=== PATIENT | female | born 1960 | race Caucasian/White ===

== ENCOUNTER → 2019-12-04 09:51 | Outpatient (CLI) | payer BC, SELFPAY ==
--- NOTE | ~2019-12-04 | MR_ITS ---
EXAMINATION: MR ankle RT wo con DATE: 12/04/2019 10:39 INDICATION: Acute right ankle pain TECHNIQUE: Magnetic resonance imaging (MRI) of the right ankle was performed without intravenous cont rast. Sequences included sagittal, coronal, and axial proton-density weighted fast spin echo without and with fat saturation. COMPARISON: None. FINDINGS: Medial ankle ligaments: Deep and superficial deltoid ligaments as well as the spring ligament are normal. Lateral ankle ligaments: The anterior and posterior inferior tibiofibular ligaments are normal. The anterior talofibular, calc aneofibular and posterior talofibular ligaments are normal. Tendons: Achilles tendon is normal. Small amount of fluid in the peroneal tendon sheath consistent with mild t enosynovitis. Mild tendinopathy with longitudinal split tearing of both the peroneus longus and brevi s tendons centered at the level of the retromalleolar groove. There are postoperative changes along t he distal fibula including several screw tracks. There is some scarring along the peroneal retinaculu m. The tibialis anterior and extensor hallucis longus tendons are normal. There is a small amount of fluid along the posterior margin of the otherwise normal-appearing extensor digitorum longus tendon a t the level of the tibiotalar joint line which appears to communicate with a small amount of fluid in the anterior recess of the tibiotalar joint space. The tibialis posterior, flexor digitorum longus a nd flexor hallucis longus tendons are normal. Plantar fascia: Tiny plantar calcaneal spur at the calcaneal origin of the otherwise normal-appearing plantar aponeur osis. Bones/other: Bone alignment is normal. As previously noted there are postoperative changes along the distal fibula . Additional postoperative changes with a few additional foci of susceptibility artifact along medial margin of the medial malleolus. Finally there is a line of susceptibility artifact also likely relat ed to prior surgery along the dorsal lateral aspect of the hindfoot with mild underlying soft tissue edema. There appears to be some thickening and increased signal of the inferolateral aspect of the st em of the inferior extensor retinaculum. Correlate with surgical history. Marrow signal is otherwise normal. No acute fracture, reactive edema or pathologic marrow replacing process. Mild joint space na rrowing at the anterolateral aspect of the tibiotalar joint with tiny marginal osteophyte along the a nterolateral rim and minimal subarticular cystic change along the juxtaposed anteromedial margin of t he talar dome. Remaining joint spaces appear relatively preserved. Fluid: Physiologic amount fluid in the joint spaces. Mild soft tissue edema along the dorsal lateral aspect of the hindfoot. IMPRESSION: 1. Tendinopathy and longitudinal split tearing along the peroneus longus and brevis tendons centered at the retromalleolar groove where there is an irregular cortical margin potentially related to prior trauma given the presence of postoperative changes about the ankle including along the distal fibula , anteromedial margin of the medial malleolus and overlying the thickened likely scarred stem of the inferior extensor retinaculum. Correlate with surgical history. 2. Mild tibiotalar osteoarthritis. 3. Stabilizing ligaments of the ankle appear normal and there are no acute osseous abnormalities. Reviewed, dictated and finalized at location B. IMPRESSION: 1. Tendinopathy and longitudinal split tearing along the peroneus longus and br abiola tendons centered at the retromalleolar groove where there is an irregular cortical margin potentially related to prior trauma given the presence of posto perative changes about the ankle inclu
== END ==
PROVIDERS: PCP Internal Medicine
DX: M19.071 Primary osteoarthritis, right ankle and foot (principal)
CPT/HCPCS: 73721

== ENCOUNTER → 2020-10-01 14:40 | Outpatient (CLI) | payer BC, SELFPAY ==
--- NOTE | ~2020-10-01 | CT_ITS ---
EXAMINATION: CT foot RT wo con DATE: 10/01/2020 15:00 INDICATION: Pain at the right great toe sesamoids. TECHNIQUE: High resolution computed tomography (CT) of the right foot was performed without intraveno us contrast. Additional sagittal and coronal reconstructions were performed. Automated exposure contr ol and iterative reconstruction technique were employed. The dose-length product was 162.71 mGy-cm. COMPARISON: None FINDINGS: Proximally 30 degrees hallux valgus. Postoperative change of prior bunionectomy and likely realignmen t osteotomy at the distal aspect of the first metatarsal. Tiny cerclage wire along the medial base of the first metatarsal likely for fixation of an additional realignment osteotomy. There is medial sub luxation of the sesamoids plantar to the head of the first metatarsal. There is hypertrophy of the ti bial sesamoid. No fracture. Mild polyarticular osteoarthritis at the first metatarsophalangeal joint. Minimal osteoarthritis at multiple additional joints in the mid and forefoot. 3 lucent screw tracks are seen along the distal fibula consistent with prior internal fixation. There are couple small surg ical clips along the medial aspect of the medial malleolus and distal tibia. . Correlate with surgica l history. Mild stranding surrounding the peroneal tendon sheath which appears to contain a small julisa unt of fluid and/or synovitis surrounding the tendons which appear thickened and with mildly decrease d attenuation consistent with tendinopathy. IMPRESSION: 1. 30 degrees hallux valgus with mild lateral subluxation of the first metatarsal sesamoids and mild osteoarthritis at the first metatarsophalangeal joint. No fracture. 2. Peroneal tenosynovitis with likely tendinopathy of the peroneus longus and brevis tendons centered at and slightly distal to the retromalleolar groove. Reviewed, dictated and finalized at location A. IMPRESSION: 1. 30 degrees hallux valgus with mild lateral subluxation of the first metatars al sesamoids and mild osteoarthritis at the first metatarsophalangeal joint. No fracture. 2. Peroneal tenosynovitis with likely tendinopathy of the peroneus longus and b rush tendons centered at and slightly distal to the retromalleolar groove.
== END ==
PROVIDERS: PCP Internal Medicine; Visit Provider Specialist
DX: M79.671 Pain in right foot (principal); M20.11 Hallux valgus (acquired), right foot
CPT/HCPCS: 73700

== ENCOUNTER 2024-05-06 13:03 | Emergency (ER) | payer BC, SELFPAY ==
--- OUTSIDE RECORDS SUMMARY | 2024-05-06 13:11 | XMS_ITS | Encounter Summary ---
Author Organization [facility] Address Formerly [facility] [place] [address] [place] [address] Care Team Providers Care Boning Room Worker Name Role Phone Miller Cheney MD Primary Care Provider Kimberli Philippe MD Primary Care Provider [phone] Encounter Details Date Type Department Care Team (Late st Contact Info) Description 02/03/2017 [place] [address] , Generic ConversionMD Social History Tobacco Use Types Packs/Day Years Used Date Smoking Tobacco: Never Assessed Comments Unknown Sex and Gender Information Value Date Recorded Sex Assigned at Not on file Legal Sex Female 7:49 PM CDT Gender Identity Not on file Sexual Orientation Not on file documented as of this encounter Plan of Treatment Not on file documented as of this encounter Visit Diagnoses Not on filedocumented in this encounter Care Teams Boning Room Worker Relationship Specialty Start Date End Date Miller Cheney MD [address] [place] [address] PCP - General INTERNAL MEDICINE 04/13/20 03/15/22 [place] [address] [place] [id number] PCP - General FAMILY PRACTICE 03/16/22 documented as of this encounter
--- OUTSIDE RECORDS SUMMARY | 2024-05-06 13:11 | XMS_ITS | Continuity of Care Document ---
Author Organization [facility] Address [address] [place] [address] [address] [place] [address] Phone Care Team Providers Care Property Claims Adjuster Name Role Phone El Gallardo MD, FACS Unavailable Unavailab le Allergies, Adverse Reactions, Alerts Substance Reaction Status Criticality corn Active No Information silver sulfadiazine Active No Infor mation silver nitrate Active No Informatio n shellfish derived Active No Informa tion Medications Medication Instructions Dosage Effective Dates (start - stop) Status Comments Levothyroxine 112 mcg Cap - Active Singulair 10 mg Tab take 1 tablet (10MG) by ORAL route every day in the evening 10 MG - Active Spironolactone 25 mg Tab take 1 tablet (25MG) by ORAL route every day 25 MG - Active Procedures Procedure Date Corneal Topography Refractive Evaluation Advance Directives Directive Yes / No Effective Date File Name No Information Encounters Encounter Description Practice Location Reason(s) For Visit Diagnoses Date Provider Providers Copied on Encounter [facility], [facility] [address], [place], [place], [id number], [place] tel:[phone] SEC Odalis Lozano No Information Ramirez Gallegos. [facility] [address], [address], [place], [place], [id number], . tel:[phone] Referring Provider: El Newsome, [facility] [address], [place], [address] . tel:[phone] [facility], [address] [facility], [place], [place], [id number], [place] tel:[phone] SEC [facility] [place] blurry vision (chief complaint) HYPERMETROPIAINCI PIENT CATARACT 2 Paulina Gallegos. [address], [address], [place], [place], [address], [place]. tel:[phone] Referring Provider: El Newsome, [address], [place], [address] . tel:[phone] Family History Family Member Type Diagnosis Age At Onset Father Problem (finding) diabetes melli tus in first degree relative Payers Payer name Insurance type Covered republican ID Authoriza tion(s) No Information Social History Type Description Quantity Date Captured Comments Sex Female Smoking Status No Information Chief Complaint And Reason For Visit No Information Reason For Referral Reason For Referral No Information History Of Present Illness Encounter Date Complaint History Of Prese nt Illness No Information Functional Status Date Functional Assessmen t No Information Instructions Date Instruction Additional Infor gordon INCIPIENT CATARACT, OU -Small trace OU- vision not affected - will continue to monitor - Cataracts accounts for pt's complaints. No treatment currently recommended, patient will monitor vision changes and contact us with any decrease in vision. Very small trace OU. Related to INCIPIENT CATARACT - Sched measurements for crystal ens RLE Related to Hyperopia Hyperopia, OU -refra ctive eval. - doesn't like mono-doesn't want more than one pair of glasses- - Lasik not the best option, won't last forever. Pt wouldn't get rid of glasses all together. Risk factors in OD orbscan of cornea bulging after Lasik. RLE Discussed. Crystalens would be good option. Discussed exercises for crystalens. Discussed safety suture and residential dilation. Cost discussed. Discussed floaters will still be present after sx. If Crystalens schedule measurements at [facility]. Related to Hyperopia Assessments Type Assessment Date No Information Patient Care Teams Name Effective Dates (start - stop) Status Members No Information
--- OUTSIDE RECORDS SUMMARY | 2024-05-06 13:11 | XMS_ITS | Continuity of Care Document ---
Author Organization [facility] Address [address] [place] [address] Phone Care Team Providers Care Bird Cage Assembler Name Role Phone Manuel Gonzales MD Unavailable Unavailable Advance Directives Directive Yes / No Effective Date File Name No Information Encounters Encounter Description Practice Location Reason(s) For Visit Diagnoses Date Provider Providers Copied on Encounter [facility], [address] [place] [address], [id number], tel:[phone] [facility] Christian Jackson. [address] [place], [place], [id number], . tel:[phone] 8560 [facility] [facility], [address] [place] [address], [id number], tel:[phone] [facility] - [place] (Op) JOINT PAIN-L/LEG Sreekanth Adan. [address] [place], [place], [id number], . tel:[phone] 2632 [facility], [address] [place] [address], [id number], tel:[phone] [facility] [place] (Op) JOINT PAIN-SHLDER No Information Family History Family Member Type Diagnosis Age At Onset No Information Payers Payer name Insurance type Covered alliance party ID Authoriza tion(s) No Information Social History Type Description Quantity Date Captured Comments Sex Female Smoking Status No Information Chief Complaint And Reason For Visit No Information Reason For Referral Reason For Referral No Information History Of Present Illness Encounter Date Complaint History Of Prese nt Illness No Information Functional Status Date Functional Assessmen t No Information Instructions Date Instruction Additional Infor mation No Information Assessments Type Assessment Date No Information Patient Care Teams Name Effective Dates (start - stop) Status Members No Information
--- OUTSIDE RECORDS SUMMARY | 2024-05-06 13:11 | XMS_ITS | Patient Health Summary ---
Author Organization [facility] Address [address] [place] [address] Care Team Providers Care Director Of State Name Role Phone Unavailable Primary Care Provider Unavailabl e Note from [facility],non-owned Affiliates and Associated Physician Practices is amultiple site organization consisting of ambulatory clinics and hospital sitesin [place], [place], [place] and [place]. This disclosure is being madepursuant to the Care Everywhere program and may not contain all information available regarding this patient. Last updated 17.[facility] Social History Tobacco Use Types Packs/Day Years Used Date Smoking Tobacco: Never Assessed Sex and Gender Information Value Date Recorded Sex Assigned at Not on file Gender Identity Not on file Sexual Orientation Not on file Procedures * DERMATOPATHOLOGY(Performed 04/09/2024) Results * DERMATOPATHOLOGY (04/09/2024 11:09 AM RAILROAD INSPECTOR) Case Report Dermatopathology Report ? Case: [id number] ? Authorizing Provider: ??Isabel Coleman MD ?Collected: ? 04/09/2024 11:09 AM ? Ordering Location: ? [facility] - ??Received: ?04/09/2024 03:28 PM ? DermPath Lab ? Pathologist: ? Elaine Azevedo MD ? Specimen: ?Skin, left lower leg ? 9:44 AM [facility] DERMATOPATHOLOGY [facility]ORAT[facility] Final Diagnosis Specimen A. SKIN, left lower leg: POROKERATOSIS (Q82.8) (see microscopic description) 9:44 AM [facility] DERMATOPATHOLOGY [facility]OR[facility] Clinical History R/O BCC 9:44 AM [facility]ERMAT[facility] Gross Description Specimen A: Received is one formalin filled container labeled with the patient's name and designated left lower leg. The specimen consists of a shave biopsy measuring 5x4x1 mm. Jar 0. 9:44 AM [facility] DERMATOPATH[facility]Y [facility] Microscopic Description Specimen A. SKIN, left lower leg: There is a sparse to moderately dense lichenoid lymphohistiocytic infiltrate, a thinned epidermis, and cornoid lamella formation. Additional deeper sections were obtained and reviewed. 9:44 AM [facility] DERMATOPATH[facility]Y [facility] Disclaimer An external and internal positive and negative controls are appropriate for the histochemical, immunohistochemical and immunofluorescence stain(s) in this case (if any), except where stated explicitly. The performance characteristics of the stain(s) cited in this report were developed and its performance characteristic determined by the Dermatopathology Laboratory at [facility], directed by Dr. Rosemary Johnson. These tests need not be, and therefore are not, approved by the [place] Food and Drug Administration. The tests are used for clinical purposes. Billing Codes Specimen Charges Stain Charges 92439 1 5 9:44 AM RAILROAD INSPECTOR DERMATOPATHOLOGY LABORATORY Embedded Images 5 9:44 AM RAILROAD INSPECTOR DERMATOPATHOLOGY LABORATORY Pathology/Cytolo gy TISSUE SPECIMEN FROM SKIN / Unknown 04/09/2024 11:09 AM RAILROAD INSPECTOR 04/09/2024 3:28 PM RAILROAD INSPECTOR Isabel Coleman MD LAB - PATHOLOGY/CYTO LOGY ORDERABLES DERMATOPATHOLOGY LABORATORY [facility] - Department of Dermatology [facility] Specialized Medicine [address] [place] [address], [address] [phone]
--- OUTSIDE RECORDS SUMMARY | 2024-05-06 13:11 | XMS_ITS | Clinical Summary ---
Author Organization [facility] Address [address] [place] [address] Phone Care Team Providers Care Fire Equipment Repairer Inspector Name Role Phone Miller Cheney MD Primary Care Provider [phone] Allergies Active Allergy Reactions Criticality Noted Date Comments Betamethasone Swelling Low 04/14/2020 Ceftriaxone Swelling Medium 04/14/2020 [place] Oil Rash Low 04/18/2012 Fexofenadine Rash Low 04/18/2012 Hymenoptera Allergenic Extract Anaphylaxis High 08/2017 Levocetirizine Rash Low 04/14/2020 Levofloxacin Rash Low 04/14/2020 Montelukast Rash Low 04/18/2012 Red (Food Color) Swelling Low 11/05/2017 Shellfish Containing Products Anaphylaxis High 11/05 Sulfa (Sulfonamide Antibiotics) Rash Low 04/02 Yellow (Food Color) Swelling Low 11/05/2017 Yellow Dye Swelling Low 11/05/2017 Medications levothyroxine 150 mcg tablet Take 150 mcg by mouth daily historiography professor. Active Active Problems Problem Noted Date Diagnosed Date Silicone breast implant in situ 02/13/2023 Overview (02/13/2023): Textured implants Status post bilateral mastectomy 02/13/2023 Breast swelling 02/13/2023 Breast pain 02/13/2023 History of breast cancer 02/13/2023 Family History Medical History Relation Name Comments Prostate Cancer Maternal Grandfather Colon Cancer Maternal Grandmother Breast Cancer Mother Breast Cancer Paternal Aunt Prostate Cancer Paternal Grandfather Colon Cancer Paternal Grandmother Relation Name Status Comments Maternal Grandfather Maternal Grandmother Mother Paternal Aunt Alive Paternal Grandfather Paternal Grandmother Social History Tobacco Use Types Packs/Day Years Used Date Smoking Tobacco: Never Smokeless Tobacco: Never Alcohol Use Standard Drinks/Week Comments No 0 (1 standard drink = 0.6 oz pur e alcohol) Comments Unknown Sex and Gender Information Value Date Recorded Sex Assigned at Not on file Legal Sex Female 1:06 PM CDT Gender Identity Not on file Sexual Orientation Not on file Last Filed Vital Signs Vital Sign Reading Time Taken Comments Blood Pressure 180/89 02/13/2023 11:08 AM LAWN AND GARDEN TECHNICIAN Pulse 87 02/13/2023 11:08 AM LAWN AND GARDEN TECHNICIAN Temperature 36.2 ??C (97.1 ??F) 03/01/2018 12:[address] Respiratory Rate 18 03/01/2018 12:34 PM LAWN AND GARDEN TECHNICIAN Oxygen Saturation 99% 02/13/2023 11:08 AM LAWN AND GARDEN TECHNICIAN Inhaled Oxygen Concentration - - Weight 82.6 kg (182 lb) 02/13/2023 11:08 AM LAWN AND GARDEN TECHNICIAN Height 170.2 cm (5' 7 ) 02/13/2023 11:08 AM LAWN AND GARDEN TECHNICIAN Body Mass Index 28.51 02/13/2023 11:08 AM LAWN AND GARDEN TECHNICIAN Plan of Treatment Health Maintenance Due Date Last Done Comments DTAP/TDAP/TD VACCINES (1 - Tdap) 12/15/1978 CERVICAL CANCER SCREENING 12/15/1989 FIT-DNA Q 3 years 12/15/2004 FIT/FOBT Q 1 year 12/15/2004 Flex Sig/CT Colonography Q 5 years 12/15/2004 ZOSTER VACCINE (1 of 2) 12/15/2009 COLORECTAL SCREENING 03/01/2021 03/01/2018, 03/01/2018, 03/01/2018, Additional history exists Colorectal Cancer Screening 03/01/2021 INFLUENZA VACCINE (#1) 2023 BREAST CANCER SCREENING 02/14/2024 02/13/2023, 02/13 RSV VACCINE (60+ or ) (1 - 1-dose 75+ series) 12/15/2034 PNEUMOCOCCAL VACCINE 0-64 YEARS Aged Out No longer eligible based on patient's age to complete this topic Procedures Procedure Name Priority Date/Time Associated Diagnosis Comments COLONOSCOPY REPORT 03/01/2018 12 :20 PM LAWN AND GARDEN TECHNICIAN from Last 3 Months or Most Recently Relevant to Health Maintenance Results * COLONOSCOPY REPORT (03/01/2018 12:20 PM LAWN AND GARDEN TECHNICIAN) Narrative Procedure Note Gumaro Iniguez MD - 03/01/2018 12:19 PM CST [facility] Endoscopy Patient Name: Luana Carlos Procedure Date: 03/01/2018 Date of : 1960 Admit Type: Outpatient Attending MD: Gumaro Iniguez MD Procedure: Colonoscopy Indications: Screening for colorectal malignant neoplasm, Last colonoscopy: 2005 Providers: Gumaro Iniguez MD Referring MD: Miller Cheney MD Medicines: Monitored Anesthesia Care Complications: No immediate complications. Procedure: Informed consent was obtained for the procedure, including moderate sedation after risks were discussed. Based on the pre-procedure assessment, including review of the patient's medical history, medications, allergies, and review of systems, the patient was deemed to be an appropriate candidate for sedation. A timeout was performed. Continuous ECG monitoring, pulse oximetry, blood pressure monitoring, and direct observation were performed. The Colonoscope was introduced through the anus and advanced to the terminal ileum. The quality of the bowel preparation was excellent. Estimated Blood Loss: Estimated blood loss: none. Findings: Two flat polyps were found in the ascending colon. The polyps were 8 to 12 mm in size. These polyps were removed with a cold snare. Resection and retrieval were complete. A 7 mm polyp was found in the descending colon. The polyp was flat. The polyp was removed with a cold snare. Resection and retrieval were complete. External and internal hemorrhoids were found during retroflexion and during perianal exam. The hemorrhoids were mild. The terminal ileum appeared normal. Impression: - Two 8 to 12 mm polyps in the ascending colon, removed with a cold snare. Resected and retrieved. - One 7 mm polyp in the descending colon, removed with a cold snare. Resected and retrieved. - External and internal hemorrhoids. - The examined portion of the ileum was normal. Recommendation: - Await pathology results. - Repeat colonoscopy in 3 years for surveillance pending pathology. - See hemorrhoid handouts. Gumaro Iniguez MD 03/01/2018 12:18:54 PM This report has been signed electronically. Number of Addenda: [phone]; [place] [address] Gumaro Iniguez MD GI PROCEDURE ORDERABLES Final Result from Last 3 Months or Most Recently Relevant to Health Maintenance Insurance [facility] P[facility]ERR[facility] Advance Directives For more information, please contact: [phone] * Full Code (Latest Code Status on File) Date Activated Date Inactivated Comments 03/01/2018 10:19 AM 03/01/2018 2:49 PM Care Teams Fire Equipment Repairer Inspector Relationship Specialty Start Date End Date Miller Cheney MD [address] [place] [phone] PCP - General Internal Medicine 11/05/17
--- OUTSIDE RECORDS SUMMARY | 2024-05-06 13:11 | XMS_ITS | Clinical Summary ---
Author Organization [facility] Address [address] [facility] [place] [address] Care Team Providers Care Vacuum Truck Driver Name Role Phone Unavailable Primary Care Provider Unavailabl e Source Comments [facility],non-owned Affiliates and Associated Physician Practices is amultiple site organization consisting of ambulatory clinics and hospital sitesin [place], [place], [place] and [place]. This disclosure is being madepursuant to the Care Everywhere program and may not contain all information available regarding this patient. Last updated 17.[facility] Encounters Date Type Department Care Team Description 04/09/2024 Lab Requisition [facility] - DermPath Lab [address] [place] [id number] Isabel Coleman MD from Last 3 Months Social History Tobacco Use Types Packs/Day Years Used Date Smoking Tobacco: Never Assessed Sex and Gender Information Value Date Recorded Sex Assigned at Not on file Gender Identity Not on file Sexual Orientation Not on file Plan of Treatment Health Maintenance Due Date Last Done Comments COLOGUARD (AGES 45-75) - COL ON CA SCREENING 1959 COLON MONITORING 1959 COLONOSCOPY - COLON CA SCREENING 1959 CT COLONOGRAPHY - COLON CA SCREENING 1959 Colorectal Cancer Screening 1959 FIT - COLON CA SCREENING 1959 FLEX SIG - COLON CA SCREENING 1959 LIPID TESTING 1959 MAMMOGRAM 1959 PAP SMEAR 1959 HIV SCREENING 12/15/1974 HEPATITIS C SCREENING 12/11/1977 DTAP/TDAP/TD VACCINES (1 - Tdap) 12/15/1978 PNEUMOCOCCAL VACCINE 50+ (1 of 1 - PCV) 12/15/2009 ZOSTER VACCINE (1 of 2) 12/15/2009 COVID-19 VACCINE ( - 2023-2 5 season) 2023 INFLUENZA VACCINE (#1) 2023 DEPRESSION SCREENING 04/02/2024 Respiratory Syncytial Virus (RSV) Vaccine Pt: or over 60 yrs (1 - 1-dose 75+ series) 12/15/2034 HEPATITIS B VACCINE Aged Out No longe r eligible based on patient's age to complete this topic HIB VACCINE Aged Out No longer eligi ble based on patient's age to complete this topic HPV VACCINE Aged Out No longer eligi ble based on patient's age to complete this topic MENINGOCOCCAL (Group B) VACCINE Aged Out No longer eligible based on patient's age to complete this topic MENINGOCOCCAL VACCINE Aged Out No xochitl manasa eligible based on patient's age to complete this topic PNEUMOCOCCAL VACCINE Aged Out No long er eligible based on patient's age to complete this topic Procedures Procedure Name Priority Date/Time Associated Diagnosis Comments DERMATOPATHOLOGY Routine 04/09/2024 11:0 9 AM NEW AUTOS DELIVERY DRIVER from Last 3 Months Results * DERMATOPATHOLOGY (04/09/2024 11:09 AM NEW AUTOS DELIVERY DRIVER) Case Report Dermatopathology Report ? Case: [id number] ? Authorizing Provider: ??Isabel Coleman MD ?Collected: ? 04/09/2024 11:09 AM ? Ordering Location: ? [facility] - ??Received: ?04/09/2024 03:28 PM ? DermPath Lab ? Pathologist: ? Elaine Azevedo MD ? Specimen: ?Skin, left lower leg ? 9:44 AM [facility] DERMATOPATHOLOGY LABORATORY Final Diagnosis Specimen A. SKIN, left lower leg: POROKERATOSIS (Q82.8) (see microscopic description) 9:44 AM [facility] DERMATOPATHOLOGY LABORATORY Clinical History R/O BCC 9:44 AM [facility] DERMATOPATHOLOGY LABORATORY Gross Description Specimen A: Received is one formalin filled container labeled with the patient's name and designated left lower leg. The specimen consists of a shave biopsy measuring 5x4x1 mm. Jar 0. 9:44 AM [facility] DERMATOPATHOLOGY LABORATORY Microscopic Description Specimen A. SKIN, left lower leg: There is a sparse to moderately dense lichenoid lymphohistiocytic infiltrate, a thinned epidermis, and cornoid lamella formation. Additional deeper sections were obtained and reviewed. 9:44 AM [facility] DERMATOPATHOLOGY LABORATORY Disclaimer An external and internal positive and negative controls are appropriate for the histochemical, immunohistochemical and immunofluorescence stain(s) in this case (if any), except where stated explicitly. The performance characteristics of the stain(s) cited in this report were developed and its performance characteristic determined by the Dermatopathology Laboratory at [facility], directed by Dr. Rosemary Johnson. These tests need not be, and therefore are not, approved by the [place] Food and Drug Administration. The tests are used for clinical purposes. Billing Codes Specimen Charges Stain Charges 09363 1 9:44 AM [facility] DERMATOPATHOLOGY LABORATORY Embedded Images 9:44 AM [facility] DERMATOPATHOLOGY LABORATORY Pathology/Cytolo gy TISSUE SPECIMEN FROM SKIN / Unknown 04/09/2024 11:09 AM NEW AUTOS DELIVERY DRIVER 04/09/2024 3:28 PM NEW AUTOS DELIVERY DRIVER Isabel Coleman MD LAB - PATHOLOGY/CYTO LOGY ORDERABLES DERMATOPATHOLOGY LABORATORY [facility] - Department of Dermatology [facility] [address] [place] [address], [address] [phone] from Last 3 Months
--- OUTSIDE RECORDS SUMMARY | 2024-05-06 13:11 | XMS_ITS | Referral Summary ---
Author Organization [facility] Address [address] [place] [address] Care Team Providers Care Chemicals Fermentation Operator Name Role Phone Unavailable Primary Care Provider Unavailabl e Source Comments [facility],non-owned Affiliates and Associated Physician Practices is amultiple site organization consisting of ambulatory clinics and hospital sitesin [place], [place], [place] and [place]. This disclosure is being madepursuant to the Care Everywhere program and may not contain all information available regarding this patient. Last updated 17.[facility] Encounters Date Type Department Care Team Description 04/09/2024 Lab Requisition [facility] - Derm[facility] Lab [address] [facility] [place] [id number] Isabel Coleman MD from Last 3 Months Social History Tobacco Use Types Packs/Day Years Used Date Smoking Tobacco: Never Assessed Sex and Gender Information Value Date Recorded Sex Assigned at Not on file Gender Identity Not on file Sexual Orientation Not on file Plan of Treatment Not on file Procedures Procedure Name Priority Date/Time Associated Diagnosis Comments DERMATOPATHOLOGY Routine 04/09/2024 11:0 9 AM CHEF HEAD from Last 3 Months Results * DERMATOPATHOLOGY (04/09/2024 11:09 AM CHEF HEAD) Case Report Dermatopathology Report ? Case: [id number] ? Authorizing Provider: ??Isabel Coleman MD ?Collected: ? 04/09/2024 11:09 AM ? Ordering Location: ? [facility] - ??Received: ?04/09/2024 03:28 PM ? DermPath Lab ? Pathologist: ? Elaine Azevedo MD ? Specimen: ?Skin, left lower leg ? 5 9:44 AM [facility] DERMATOPATHOLOGY LABORATORY Final Diagnosis Specimen A. SKIN, left lower leg: POROKERATOSIS (Q82.8) (see microscopic description) 5 9:44 AM [facility] DERMATOPATHOLOGY LABORATORY Clinical History R/O BCC 5 9:44 AM [facility] DERMATOPATHOLOGY LABORATORY Gross Description Specimen A: Received is one formalin filled container labeled with the patient's name and designated left lower leg. The specimen consists of a shave biopsy measuring 5x4x1 mm. Jar 0. 5 9:44 AM [facility] DERMATOPATHOLOGY LABORATORY Microscopic Description Specimen A. SKIN, left lower leg: There is a sparse to moderately dense lichenoid lymphohistiocytic infiltrate, a thinned epidermis, and cornoid lamella formation. Additional deeper sections were obtained and reviewed. 5 9:44 AM [facility] DERMATOPATHOLOGY LABORATORY Disclaimer An external and internal positive and negative controls are appropriate for the histochemical, immunohistochemical and immunofluorescence stain(s) in this case (if any), except where stated explicitly. The performance characteristics of the stain(s) cited in this report were developed and its performance characteristic determined by the Dermatopathology Laboratory at [facility], directed by Dr. Rosemary Johnson. These tests need not be, and therefore are not, approved by the [place] Food and Drug Administration. The tests are used for clinical purposes. Billing Codes Specimen Charges Stain Charges 40729 1 5 9:44 AM [facility] DERMATOPATHOLOGY LABORATORY Embedded Images 5 9:44 AM [facility] DERMATOPATHOLOGY LABORATORY Pathology/Cytolo gy TISSUE SPECIMEN FROM SKIN / Unknown 04/09/2024 11:09 AM CHEF HEAD 04/09/2024 3:28 PM CHEF HEAD Isabel Coleman MD LAB - PATHOLOGY/CYTO LOGY ORDERABLES DERMATOPATHOLOGY LABORATORY [facility] - Department of Dermatology [address], [address] [phone] from Last 3 Months
--- OUTSIDE RECORDS SUMMARY | 2024-05-06 13:11 | XMS_ITS | Encounter Summary ---
Author Organization [facility] Address [address] [place] [place] [address] Care Team Providers Care Physical Anthropologist Name Role Phone Unavailable Primary Care Provider Unavailabl e Encounter Details Date Type Department Care Team (Late st Contact Info) Description 04/09/2024 Lab Requisition [facility] - DermPath Lab [address] [facility] [place] [address] Isabel Coleman MD [address] [facility] [address] [place] [address] Social History Tobacco Use Types Packs/Day Years Used Date Smoking Tobacco: Never Assessed Sex and Gender Information Value Date Recorded Sex Assigned at Not on file Gender Identity Not on file Sexual Orientation Not on file documented as of this encounter Plan of Treatment Not on file documented as of this encounter Procedures Procedure Name Priority Date/Time Associated Diagnosis Comments DERMATOPATHOLOGY Routine 04/09/2024 11:0 9 AM BRIDGE GAME DIRECTOR documented in this encounter Results * DERMATOPATHOLOGY (04/09/2024 11:09 AM BRIDGE GAME DIRECTOR) Case Report Dermatopathology Report ? Case: [id number] ? Authorizing Provider: ??Isabel Coleman MD ?Collected: ? 04/09/2024 11:09 AM ? Ordering Location: ? [facility] - ??Received: ?04/09/2024 03:28 PM ? DermPath Lab ? Pathologist: ? Elaine Azevedo MD ? Specimen: ?Skin, left lower leg ? 9:44 AM [facility] DERMATOPATHOLOGY LABORATORY Final Diagnosis Specimen A. SKIN, left lower leg: POROKERATOSIS (Q82.8) (see microscopic description) 9:44 AM [facility] DERMATOPATHOLOGY LABORATORY Clinical History R/O BCC 9:44 AM [facility] DERMATOPATHOLOGY LABORATORY Gross Description Specimen A: Received is one formalin filled container labeled with the patient's name and designated left lower leg. The specimen consists of a shave biopsy measuring 5x4x1 mm. Jar 0. 9:44 AM [facility] DERMATOPATHOLOGY LABORATORY Microscopic Description Specimen A. SKIN, left lower leg: There is a sparse to moderately dense lichenoid lymphohistiocytic infiltrate, a thinned epidermis, and cornoid lamella formation. Additional deeper sections were obtained and reviewed. 9:44 AM [facility] DERMATOPATHOLOGY LABORATORY Disclaimer An external and internal positive and negative controls are appropriate for the histochemical, immunohistochemical and immunofluorescence stain(s) in this case (if any), except where stated explicitly. The performance characteristics of the stain(s) cited in this report were developed and its performance characteristic determined by the Dermatopathology Laboratory at [facility], directed by Dr. Rosemary Johnson. These tests need not be, and therefore are not, approved by the [place] Food and Drug Administration. The tests are used for clinical purposes. Billing Codes Specimen Charges Stain Charges 63630 1 5 9:44 AM BRIDGE GAME DIRECTOR DERMATOPATHOLOGY LABORATORY Embedded Images 5 9:44 AM BRIDGE GAME DIRECTOR DERMATOPATHOLOGY LABORATORY Pathology/Cytolo gy TISSUE SPECIMEN FROM SKIN / Unknown 04/09/2024 11:09 AM BRIDGE GAME DIRECTOR 04/09/2024 3:28 PM BRIDGE GAME DIRECTOR Isabel Coleman MD LAB - PATHOLOGY/CYTO LOGY ORDERABLES DERMATOPATHOLOGY LABORATORY [facility] - Department of Dermatology [facility] Medicine [address] [place] [address], [address] [phone] documented in this encounter Visit Diagnoses Not on filedocumented in this encounter
--- OUTSIDE RECORDS SUMMARY | 2024-05-06 13:11 | XMS_ITS | Clinical Summary ---
Author Organization [facility] Address [address] [place] [address]. [place] [address] [place] [address] Care Team Providers Care Traffic Sign Erection Supervisor Name Role Phone Kimberli Philippe MD Primary Care Provider [phone] Allergies Active Allergy Reactions Criticality Noted Date Comments Azithromycin Itching,Unknown Medium 04/18/2012 Betamethasone Swelling 04/14/2020 Ceftriaxone Swelling Medium 04/14/2020 Clarithromycin Rash Medium 04/14/2020 [place] Oil Unknown 04/18/2012 Fexofenadine Unknown 04/18/2012 Food Color Red Swelling Low 11/05/2017 Food Color Yellow Swelling Low 11/05/2017 Levocetirizine Rash Low 04/14/2020 Levofloxacin Other (see comment) 04/14/2020 Montelukast Unknown 04/18/2012 Shellfish Allergy Anaphylaxis High 11/05/2017 Shellfish-Derived Products Unknown 3 Silver Sulfadiazine Unknown 04/18/2012 Sulfa Antibiotics Unknown 04/18/2012 Thyroid Unknown 04/18/2012 Wasp Venom Protein Anaphylaxis High 11/05/2017 Medications EPINEPHrine 0.3 MG/0.3ML injection 09/06/2021 Active levothyroxine (SYNTHROID) 50 MCG tablet 3 tablets daily 06/29/2022 Active Active Problems No known active problems Immunizations Name Administration Dates Next Due Td, Adsorbed, Preservative F ree, Adult Use, Lf Unspecified 12/06/2021 Family History Medical History Relation Comments Cancer Maternal Aunt breast cancer Cancer Maternal Grandmother colon cance r Cancer Paternal Aunt breast cancer Cancer Paternal Grandmother colon cance r Relation Status Comments Maternal Aunt Maternal Grandmother Paternal Aunt Paternal Grandmother Social History Tobacco Use Types Packs/Day Years Used Date Smoking Tobacco: Never Passive Smoke Exposure: Never Smokeless Tobacco: Never Tobacco Cessation:Counseling Given: No Alcohol Use Standard Drinks/Week Comments Yes 0 (1 standard drink = 0.6 oz pur e alcohol) occasionaly PHQ-2 Answer Date Recorded Patient Health Questionnaire-2 Score 0 07/26/2022 Comments No Sex and Gender Information Value Date Recorded Sex Assigned at Not on file Legal Sex Female 7:49 PM CDT Gender Identity Not on file Sexual Orientation Not on file Last Filed Vital Signs Vital Sign Reading Time Taken Comments Blood Pressure 163/91 09/11/2022 12:08 PM CDT Pulse 89 09/11/2022 12:02 PM CDT Temperature 36.8 ??C (98.2 ??F) 09/11/2022 12:02 PM C DT Respiratory Rate 20 09/11/2022 12:02 PM CDT Oxygen Saturation 96% 09/11/2022 12:02 PM CDT Inhaled Oxygen Concentration - - Weight 84.1 kg (185 lb 6.4 oz) 09/11/2022 12:02 PM CDT Height 170.2 cm (5' 7 ) 09/11/2022 12:02 PM CDT Body Mass Index 29.04 09/11/2022 12:02 PM CDT Plan of Treatment Health Maintenance Due Date Last Done Comments Cervical Cancer Screening Pa p Smear (Age 30 to 64) Every 3 Years 1959 Colorectal Cancer Screening Colonoscopy (10 Years) 1959 Annual Physical 12/15/1962 Hepatitis C 12/15/1977 Cervical Cancer Screening Pa p with HPV Testing (Age 30 to 64) Every 5 Years 12/15/1989 Cervical Cancer Screening with HPV 12/15/1989 Zoster Vaccines (1 of 2) 12/15/2009 DTaP, Tdap and Td Vaccines ( 1 - Tdap) 12/07/2021 12/06/2021 PHQ-2 (Physician [place]) 07/27/2023 07/26/2022 COVID-19 Vaccine (1 - 2023-2 5 season) 2023 Influenza Adult (#1) 2024 PHQ-2 (Physician [place]) 04/02/2024 07/26/2022 RSV Immunization or 60+ Years (1 - 1-dose 75+ series) 12/15/2034 Meningococcal B Vaccine Aged Out No l onger eligible based on patient's age to complete this topic Meningococcal Vaccine Aged Out No xochitl manasa eligible based on patient's age to complete this topic Pneumococcal Vaccine: Pediat rics (0 to 5 Years) and At-Risk Patients (6 to 64 Years) Aged Out No longer eligi ble based on patient's age to complete this topic RSV Immunizations Under 20 Months Aged Out No longer eligible based on patient's age to complete this topic Insurance [facility] Care Teams Traffic Sign Erection Supervisor Relationship Specialty [place] [id number] [place] [address] PCP - General FAMILY PRACTICE 03/16/22
--- OUTSIDE RECORDS SUMMARY | 2024-05-06 13:14 | XMS_ITS | Continuity of Care Document ---
Author Organization [facility]erg[facility] Address [address] [place] [address] [address] [place] [address] Phone Care Team Providers Care Fundraising Officer Name Role Phone El Gallardo MD, FACS [...] Diagnoses Date Provider Providers Copied on Encounter [facility], [facility] [employer] [facility] [address], [place], [place], [id number], [place] tel:[phone] SEC Odalis Lozano No Information Ramirez Gallegos. [facility] [address], [address], [place], [place], [id number], . tel:[phone] Referring Provider: El [place], [facility] [address], [place], [address] . tel:[phone] [facility], [address], [place], [place], [id number], [place] tel:[phone] SEC [facility] [place] blurry vision (chief complaint) HYPERMETROPIAINCI PIENT CATARACT 2 Paulina Gallegos. [address], [address], [place], [place], [id number], [place]. tel:[phone] Referring Provider: El [place], [address], [place], [address] . tel:[phone] Family History Family Member Type Diagnosis Age At Onset Father Problem (finding) diabetes melli tus in first degree relative Payers Payer name Insurance type Covered constitution party ID Authoriza tion(s) No Information Social [...] exercises for crystalens. Discussed safety suture and mcc dilation. Cost discussed. Discussed floaters will still be present after sx. If Crystalens schedule measurements at [facility]. Related to Hyperopia Assessments Type Assessment Date No Information Patient Care Teams Name Effective Dates (start - stop) Status Members No Information
[2024-05-06 14:34] VITALS: BP 174/83; PULSE 92; RESP 18; TEMP 36.3; O2SAT 98
[2024-05-06 14:34] LABS: EDUAAPPEAR Clear; EDUABILI Negative (Negative); EDUABLOOD Trace (Negative); EDUACOLOR1 Yellow; EDUAGLUCOSE Trace (Negative); EDUAKETONE Negative (Negative); EDUALEUKO Trace (Negative); EDUANITRATE Negative (Negative); EDUAPH 5.5; EDUAPROTEIN Negative (Negative); EDUAUROBILI 0.2
--- NOTE | 2024-05-06 14:59 | ED.FEMALEGU ---
HPI - Female Genitourinary General Chief complaint: Urogenital-Female Stated complaint: Sinus / UTI Time Seen by Provider: 05/06/24 15:00 Source: patient, RN notes reviewed and old records reviewed Mode of arrival: ambulatory Limitations: no limitations History of Present Illness HPI Narrative: patient presents with complaints of urinary frequency and burning for 6 or 7 days. She reports that she has also had little bit of a runny nose. She denies any fever, chills, sweats. She has not been taking any medication for her since denies any injury or trauma. She is not in any distress Related Data Allergies Allergy/AdvReac Type Severity Reaction Status Date / Time azithromycin (From Zithromax) Allergy Intermediate Itching Verified 05/06/24 14:44 clarithromycin (From Biaxin) Allergy Intermediate Rash Verified 05/06/24 14:44 gatifloxacin (From Tequin) Allergy Intermediate Rash Verified 05/06/24 14:44 hydrocodone Allergy Intermediate Itching Verified 05/06/24 14:44 cephalexin (From Keflex) Allergy Unknown Unknown Verified 05/06/24 14:44 telithromycin (From Ketek) AdvReac Intermediate Insomnia Verified 05/06/24 14:44 levofloxacin (From Levaquin) AdvReac Unknown Unknown Verified 05/06/24 14:44 bee stings Allergy Severe Anaphylactic Uncoded 05/06/24 14:44 Shock dyes Allergy Severe Anaphylactic Uncoded 05/06/24 14:44 Shock shellfish Allergy Severe Anaphylactic Uncoded 05/06/24 14:44 Shock Review of Systems Review of Systems: All systems reviewed & are unremarkable except as noted in HPI and below Constitutional: Constitutional: Reports no additional constitutional complaints ENT: Reports system reviewed and no additional complaints, except as documented, Reports nasal congestion and Reports nasal discharge Cardiovascular: Cardiovascular: Reports no additional cardiovascular complaints Respiratory: Respiratory: Reports no additional respiratory complaints Gastrointestinal: Gastrointestinal: Reports no additional gastrointestinal complaints Genitourinary: Genitourinary: Reports nocturia, Reports dysuria and Reports urinary urgency [facility] Past Medical History Medical History Animal bite Breast cancer Cellulitis History of recent animal bite Hypothyroidism Impaired fasting blood sugar Surgical History Surgical History H/O left mastectomy History of ankle surgery H/O knee surgery H/O repair of rotator cuff H/O wrist surgery History of back surgery History of hernia repair History of cholecystectomy Family History Family History Mother Family history of thyroid disease Family history of hearing loss Father Family history of diabetes mellitus in first degree relative Other Breast cancer Other Carcinoma of colon Social History Social History Smoking status: Never smoker Second hand tobacco smoke exposure: No Alcohol intake: current Alcohol use details: social Substance use: never Substance use type: does not use Do You Feel Safe in your Home?: Yes Lack of Transportation: No Lack of Food: Never True Current Housing: I Have Housing Concerned About Future Housing: No Difficulty Paying Gas/Electric Bills: No Difficulty Paying for Meds: No Currently Unemployed: No Education: High School Diploma/GED Difficulty w/ Childcare or Family Care: No Living arrangements: with family Occupation/Education: occupation Gender identity (if verbalized by the patient): Female Sexual Orientation (if Verbalized by the Patient): Straight or Heterosexual Comments At the time of my signature, I reviewed and agree with the nursing past medical, surgical, social, and family history. There is no relevant family history pertinent to the patient complaint. Exam Const: General: cooperative, no acute distress, alert and awake Orientation/consciousness: oriented to person, oriented to place and oriented to time HENMT: Head: normal to inspection Ears: TM's normal bilaterally Mouth: Yes moist mucous membranes Resp: Effort & Inspection: normal respiratory effort and able to speak in complete sentences Auscultation: clear to auscultation bilaterally, no crackles, no rales, no rhonchi and no wheezes Cardio: Palpation: normal PMI Rate: regular rate Rhythm: regular rhythm Heart sounds: S1 normal heart sound present and S2 normal heart sound present : General: Yes bladder normal to palpation and Yes no CVA tenderness Neuro: General: oriented to person, oriented to place and oriented to time Cranial nerves: Yes CN's II-XII intact bilaterally Psych: Appearance: grossly normal Thought process: Normal thought process present Insight: Good insight present (Psych) Judgement: Good judgement present (Psych) Course Course Level of Care: Express Care Visit Vital Signs Vital signs: Vital Signs Temperature 97.3 F L 05/06/24 14:34 Pulse Rate 92 05/06/24 14:34 Respiratory Rate 18 05/06/24 14:34 Blood Pressure 174/83 H 05/06/24 14:34 Pulse Oximetry 98 05/06/24 14:34 Oxygen Delivery Room Air 05/06/24 14:34 Temperature 97.3 F L 05/06/24 14:34 Pulse Rate 92 05/06/24 14:34 Respiratory Rate 18 05/06/24 14:34 Blood Pressure 174/83 H 05/06/24 14:34 Pulse Oximetry 98 05/06/24 14:34 Oxygen Delivery Room Air 05/06/24 14:34 Reviewed MDM - Female Genitourinary MDM Narrative Medical decision making narrative: UA concerning for UTI. Initially prescribed Macrobid, but patient called the farm and now states she wants nothing except Keflex. She states she is unsure how Keflex got on to her allergy list. She reports that she cannot take Macrobid because per the pharmacy, it contains home and and yellow. Will go ahead and prescribe Keflex. Stop Order placed on Macrobid. She is nontoxic appearing, stable for discharge home on p.o. antibiotic therapy. Culture pending. Discharge instructions reviewed with patient, as well as provided in writing per nursing staff. The instructions also include specific and strict return/GO TO THE ER as well as f/u information. All questions have been answered, and the patient deny any further questions with discharge and discharge plan. Some parts of this dictation were generated by voice recognition software and may contain typographical and/or grammatical inaccuracies. Differential Diagnosis Differential diagnosis: Likely urinary tract infection and cystitis Medical Records Attestation: I reviewed the patient's medical records. Lab Data Attestation: I reviewed the patient's lab results. Labs: Lab Results 05/06/24 Range/Units 14:32 POC Urine Color Yellow POC Urine Clarity Clear POC Urine pH 5.5 POC Ur Specif [place] 1.010 POC Urine Protein Negative (Negative) POC Ur Glucose (UA) Trace (Negative) POC Urine Ketones Negative (Negative) POC Urine Blood Trace (Negative) POC Urine Nitrite Negative (Negative) POC Urine Bilirubin Negative (Negative) POC Urine Urobilinogen 0.2 POC U Leukocyte Esteras Trace (Negative) Discharge Plan Discharge Clinical Impression: Urinary tract infection Qualifiers: Urinary tract infection type: site unspecified Hematuria presence: with hematuria Qualified Code(s): N39.0 - Urinary tract infection, site not specified Patient Disposition: Home, Self-Care Condition: Stable Instructions: Antibiotic Form, Urinary Tract Infection in Women (ED) Additional Instructions: take all medications as prescribed. Follow with primary care provider. Emergency department for any new or worsening symptoms Patient Language: Japanese Prescriptions: New cephalexin 500 mg capsule 500 mg PO Q8H Qty: 21 0RF No Action levothyroxine 50 mcg tablet 150 mcg PO DAILY Qty: 270 3RF Rx Instructions: Pt requests dye free brand epinephrine [EpiPen] 0.3 mg/0.3 mL auto-injector 0.3 mg IM ONCE PRN (Reason: anaphylaxis) Qty: 2 0RF Rx Instructions: as a single dose; may repeat once Follow-up/Referrals: PHYSICIAN,ECHO VASCULAR TECHNOLOGIST [Primary Care Provider] - Stand Alone Forms: Work/School Release IP Time of Disposition: 15:09
== END 2024-05-06 15:33 | disposition home or self-care (01) ==
PROVIDERS: Emergency Provider Nurse Practitioner Family
DX: N39.0 Urinary tract infection, site not specified (principal); Z85.3 Personal history of malignant neoplasm of breast; E03.9 Hypothyroidism, unspecified
CPT/HCPCS: 81003; 87086; 99213; G0463